=== PATIENT | female | born 1950 | race Caucasian/White ===

== ENCOUNTER 2016-11-14 17:05 | Emergency (ER) | payer MEDICARE, OTHER ==
--- NOTE | 2016-11-14 17:55 | XRAY Preliminary Report ---
Exam: XR Elbow 3 View LT IMPRESSION: No fracture or joint effusion. [facility] SITE ID: [id number]
--- NOTE | 2016-11-14 17:57 | XRAY Report ---
EXAM: LEFT ELBOW RADIOGRAPHY EXAM DATE: 11/14/2016 05:32 PM. CLINICAL HISTORY: Fall. Injury. Elbow pain. COMPARISON: None. TECHNIQUE: No traumatic or destructive bone abnormalities. views. FINDINGS: Bones: No traumatic or destructive bone abnormality. Lateral epicondylar enthesophyte noted. Joints: Normal. No effusion. No subluxation. Soft Tissues: Subcutaneous fat stranding noted laterally. IMPRESSION: No fracture or joint effusion. [facility] Referring Provider Line: [phone] SITE ID: [id number]
--- NOTE | 2016-11-14 18:27 | ED Physician Documentation ---
PD HPI UPPER EXT INJURY - Stated complaint Stated Complaint: FALL LT ARM INJ - Chief complaint Chief Complaint: Ext Problem - History obtained from History obtained from: Patient - History of Present Illness Location: Left, Elbow, Forearm Type of injury: Fall (slipped and caught her fall with left arm. Denies other injury.) Timing - onset: Today Timing - details: Abrupt onset, Still present Improved by: Rest Worsened by: Moving, Palpating Associated symptoms: No: Weakness, Numbness, Swelling Contributing factors: No: Anticoagulated Similar symptoms before: Has not had sx before Recently seen: Not recently seen Review of Systems Constitutional: denies: Fever, Chills Nose: denies: Rhinorrhea / runny nose, Congestion Throat: denies: Sore throat Cardiac: denies: Chest pain / pressure Respiratory: denies: Cough GI: denies: Abdominal Pain Skin: denies: Abrasion (s), Laceration (s) Neurologic: denies: Focal weakness, Numbness, Altered mental status, Headache, Head injury PD PAST MEDICAL HISTORY - Past Medical History Past Medical History: Yes Cardiovascular: Hypertension Neuro: TIA Endocrine/Autoimmune: Type 2 diabetes - Past Surgical History General: Cholecystectomy, Gastric surgery - Present Medications Home Medications: Ambulatory Orders Medication Instructions Recorded Confirmed Aspirin Chewable [St Joey 81 mg PO DAILY 11/14/16 11/14/16 Aspirin] Lisinopril 10 mg PO DAILY 11/14/16 11/14/16 Metformin HCl 500 mg PO BID 11/14/16 11/14/16 Simvastatin 20 mg PO DAILY 11/14/16 11/14/16 Tramadol HCl 50 mg PO Q6H PRN #20 tablet 11/14/16 - Allergies Allergies/Adverse Reactions: Allergies Allergy/AdvReac Type Severity Reaction Status Date / Time Sulfa (Sulfonamide Allergy Unknown Verified 11/14/16 17:24 Antibiotics) - Social History Does the pt smoke?: No Smoking Status: Never smoker PD ED PE NORMAL - Vitals Vital signs reviewed: Yes - General General: Alert and oriented X 3, Well developed/nourished - HEENT HEENT: Atraumatic - Neck Neck: Supple, no meningeal sign, No bony TTP, No adenopathy - Respiratory Respiratory: Clear bilaterally, Other (no chestwall tenderness) - Abdomen Abdomen: Soft, Non tender - Derm Derm: Normal color, Warm and dry - Extremities Extremities: Other (left elbow tender radial head area. No effusion. ROM present but hurts for full extension. also some tender dorsal wrist without swelling nor deformity. ELbow and forearm pain with supination/pronation of forearm. ) - Neuro Neuro: No motor deficit, No sensory deficit Results - Vitals Vitals: Oxygen O2 Source Room air - Rads (name of study) elbow Radiology: Prelim report reviewed (no fracture) wrist Radiology: Prelim report reviewed (no fracture) PD MEDICAL DECISION MAKING - ED course Complexity details: reviewed results, considered differential (tender in radial head area with hurts with ROM elbow and supination/pronation at wrist. No effusion of elbow. Concern for occult radial neck injury. Guarded use and ROM for short term. ), d/w patient Departure - Departure Disposition: 01 Home, Self Care Clinical Impression: Sprain of arm Fall from slip, trip, or stumble Qualifiers: Encounter type: initial encounter Qualified Code(s): W01.0XXA - Fall on same level from slipping, tripping and stumbling without subsequent striking against object, initial encounter Condition: Stable Record reviewed to determine appropriate education?: Yes Instructions: ED Sprain Elbow Follow-Up: Lana Paez ARNP [Primary Care Provider] - Prescriptions: Tramadol HCl 50 mg PO Q6H PRN #20 tablet PRN Reason: Pain Comments: Your x-rays appear normal here. There is concern however that a few percent of the time there can be a hairline fracture at the head of the radius at the elbow that does not show up on regular x-rays. Since you have pain in the area , would have you use a sling with gentle range of motion only for the next several days to week. This would be proper treatment for a fracture there as well as a sprain. Tylenol 4 times a day and add tramadol if needed for pain. If your wrist and elbow are feeling better over the next several days then he can increase use of them as appropriate and tolerated as the fracture would not get better that quickly. If it is still hurting for movement over a week or so , then recheck with your primary care for potential re-x-ray. Discharge Date/Time: 11/14/16 19:32
[2016-11-14] MEDS ORDERED: traMADol 50 MG TABLET PO STA (18:35)
[2016-11-14] MEDS ORDERED: ACETAMINOPHEN 325 MG TABLET PO STA (18:35)
[2016-11-14] MEDS ORDERED: traMADol 50 MG TABLET PO ONE (18:45)
[2016-11-14] MEDS ORDERED: ACETAMINOPHEN 325 MG TABLET PO ONE (18:46)
[2016-11-14 19:34] VITALS: BP 158/83
--- NOTE | 2016-11-14 19:44 | XRAY Preliminary Report ---
Exam: XR Wrist 4 View LT IMPRESSION: Normal wrist radiography. [facility] SITE ID: [id number]
--- NOTE | 2016-11-14 19:47 | XRAY Report ---
EXAM: LEFT WRIST RADIOGRAPHY EXAM DATE: 11/14/2016 06:55 PM. CLINICAL HISTORY: Fell onto left arm/wrist. Pain. COMPARISON: None. TECHNIQUE: 4 views. FINDINGS: Bones: Normal. No fractures or bone lesions. Joints: Normal. No subluxations. Soft Tissues: Normal. No soft tissue swelling. IMPRESSION: Normal wrist radiography. [facility] Referring Provider Line: [phone] SITE ID: [id number]
== END 2016-11-14 19:32 | disposition home or self-care (01) ==
LOC: ED 17:05
DX: S53.402A Unspecified sprain of left elbow, initial encounter (principal); S63.502A Unspecified sprain of left wrist, initial encounter; W01.0XXA Fall on same level from slipping, tripping and stumbling without subsequent striking against object, initial encounter; I10 Essential (primary) hypertension; E11.9 Type 2 diabetes mellitus without complications; Z79.84 Long term (current) use of oral hypoglycemic drugs; Z86.73 Personal history of transient ischemic attack (TIA), and cerebral infarction without residual deficits
CPT/HCPCS: 73080; 73110; 99282; 99283; A9270

== ENCOUNTER 2016-11-29 15:26 | Outpatient (CLI) | payer MEDICARE, OTHER ==
[2016-11-29 13:17] LABS: BASOPHILS % (AUTO) 0.3 %; EOSINOPHILS # (AUTO) 0.2 10^3/uL (0.0-0.7); EOSINOPHILS % (AUTO) 2.5 %; HCT - HEMATOCRIT 35.5 % (37.0-47.0); HGB - HEMOGLOBIN 11.7 g/dL (12.0-16.0); LYMPHOCYTES # (AUTO) 2.7 10^3/uL (1.5-3.5); LYMPHOCYTES % (AUTO) 36.3 %; MEAN CORPUSCULAR HEMOGLOBIN 28.1 pg (27.0-31.0); MEAN CORPUSCULAR HGB CONC 33.1 g/dL (32.0-36.0); MEAN CORPUSCULAR VOLUME 85.1 fL (81.0-99.0); MEAN PLATELET VOLUME 8.5 fL (7.9-10.8); MONOCYTES # (AUTO) 0.6 10^3/uL (0.0-1.0); MONOCYTES % (AUTO) 8.2 %; NEUTROPHILS # (AUTO) 3.9 10^3/uL (1.5-6.6); NEUTROPHILS % (AUTO) 52.7 %; RED BLOOD COUNT 4.17 10^6/uL (4.20-5.40); RED CELL DISTRIBUTION WIDTH 14.2 % (12.0-15.0); UNCORRECTED WHITE BLOOD COUNT 7.3 x10^3/uL; WHITE BLOOD COUNT 7.3 x10^3/uL (4.8-10.8)
[2016-11-29 13:40] LABS: ALBUMIN/GLOBULIN RATIO 1.2 (1.0-2.2); BILIRUBIN,TOTAL 0.9 mg/dL (0.2-1.0); BUN - BLOOD UREA NITROGEN 17 mg/dL (6-20); CALCIUM 9.2 mg/dL (8.5-10.3); CARBON DIOXIDE - CO2 25 mmol/L (21-32); CHLORIDE 104 mmol/L (101-111); CHOL/HDL RATIO 2.4 (<4.4); CHOLESTEROL 148 mg/dL; CREATININE 0.7 mg/dL (0.4-1.0); GFR - MDRD 84 (>89); GLUCOSE 116 mg/dL (70-100); HDL CHOLESTEROL 62 mg/dL; POTASSIUM 3.8 mmol/L (3.5-5.0); SODIUM 139 mmol/L (135-145); TOTAL PROTEIN 7.4 g/dL (6.7-8.2); TRIGLYCERIDES 107 mg/dL; VLDL CHOLESTEROL 21 mg/dL
== END 2016-11-29 15:27 | disposition home or self-care (01) ==
LOC: LAB.N 15:26
PROVIDERS: ATTEND Nurse Practitioner Gerontology
DX: Z79.899 Other long term (current) drug therapy (principal); E53.8 Deficiency of other specified B group vitamins
CPT/HCPCS: 36415; 80053; 80061; 82607; 85025

== ENCOUNTER 2017-01-03 09:45 | Outpatient (CLI) | payer MEDICARE, OTHER ==
--- NOTE | 2017-01-04 08:39 | DEXA Report ---
DEXA: 01/03/2017 CLINICAL INDICATION: Postmenopausal. TECHNIQUE: Dual energy x-ray absorptiometry (DXA) was performed on a [employer] system. Regions measured are the AP spine, femoral neck, and, if needed, forearm. COMPARISON: None. In accordance with the International Society for Clinical Densitometry (ISCD) guidelines, data from previous exams may be reanalyzed using current recommendations and techniques. This is done to allow a more accurate basis for comparison with the current study. FINDINGS LUMBAR SPINE DATA: REGION BMD (g/cm/cm) T-SCORE Z-SCORE L1 0.854 -2.3 -1.3 L2 1.107 -0.8 0.2 L3 1.175 -0.2 0.8 L4 0.977 -1.9 -0.9 TOTAL L1-L4 1.030 -1.3 -0.3 NOTE: All evaluable vertebrae are used for classification. HIP DATA: REGION BMD (g/cm/cm) T-SCORE Z-SCORE Neck 0.829 -1.5 -0.4 TOTAL 0.814 -1.5 -0.7 NOTE: The femoral neck or total proximal femur, whichever is lowest, is used for classification. IMPRESSION THE WHO CLASSIFICATION BASED ON THE INTERNATIONAL REFERENCE STANDARD: OSTEOPENIA. FRACTURE RISK: INCREASED. RECOMMENDATION: Patients with diagnosis of osteoporosis or osteopenia should have regular bone mineral density assessment. For those eligible for Medicare, routine testing is allowed once every 2 years. Testing frequency can be increased for patients who have rapidly progressing disease or for those who are receiving medical therapy to restore bone mass. COMMENT: World Health Organization (WHO) definitions for osteoporosis and osteopenia: NORMAL BMD: T-score at -1.0 or higher, fracture risk is low. OSTEOPENIA BMD: T-score between -1.0 and -2.5, fracture risk is increased. OSTEOPOROSIS BMD: T-score at -2.5 or lower, fracture risk high. National Osteoporosis Foundation recommends: 1. Obtain adequate dietary calcium (at least 1200 mg per day) and vitamin D (400 -800 international units per day). 2. Participate, as appropriate, in regular weightbearing and muscle- strengthening exercise. 3. Avoid tobacco use and reduce alcohol and caffeine intake. 4. For more detailed information see the website at www.NOF.org. MTDD
== END 2017-01-03 09:46 | disposition home or self-care (01) ==
LOC: DI 09:45
PROVIDERS: ATTEND Nurse Practitioner Gerontology
DX: M85.89 Other specified disorders of bone density and structure, multiple sites (principal)
CPT/HCPCS: 77080

== ENCOUNTER 2017-01-14 06:20 | Emergency (ER) | payer MEDICARE, OTHER ==
[2017-01-14 06:40] LABS: BASOPHILS # (AUTO) 0.1 10^3/uL (0.0-0.1); BASOPHILS % (AUTO) 1.3 %; EOSINOPHILS # (AUTO) 0.2 10^3/uL (0.0-0.7); EOSINOPHILS % (AUTO) 1.7 %; HCT - HEMATOCRIT 37.2 % (37.0-47.0); HGB - HEMOGLOBIN 12.5 g/dL (12.0-16.0); LYMPHOCYTES # (AUTO) 3.2 10^3/uL (1.5-3.5); LYMPHOCYTES % (AUTO) 34.3 %; MEAN CORPUSCULAR HGB CONC 33.6 g/dL (32.0-36.0); MEAN CORPUSCULAR VOLUME 86.3 fL (81.0-99.0); MEAN PLATELET VOLUME 8.1 fL (7.9-10.8); MONOCYTES # (AUTO) 0.9 10^3/uL (0.0-1.0); MONOCYTES % (AUTO) 9.7 %; RED BLOOD COUNT 4.31 10^6/uL (4.20-5.40); RED CELL DISTRIBUTION WIDTH 14.4 % (12.0-15.0); UNCORRECTED WHITE BLOOD COUNT 9.5 x10^3/uL; WHITE BLOOD COUNT 9.5 x10^3/uL (4.8-10.8)
[2017-01-14 06:52] LABS: BILIRUBIN,URINE NEGATIVE (NEGATIVE); PH,URINE 6.5 PH (5.0-7.5)
[2017-01-14 06:53] LABS: ALBUMIN/GLOBULIN RATIO 1.2 (1.0-2.2); BILIRUBIN,TOTAL 0.5 mg/dL (0.2-1.0); CALCIUM 9.7 mg/dL (8.5-10.3); CREATININE 0.8 mg/dL (0.4-1.0); POTASSIUM 3.5 mmol/L (3.5-5.0); TOTAL PROTEIN 7.8 g/dL (6.7-8.2)
[2017-01-14 07:06] LABS: UA w/ MICROSCOPIC CHARGE YES; UR CULTURE IF IND NOT INDICATED; WBC,URINE 0-3 /HPF (0-5)
[2017-01-14] MEDS ORDERED: MORPHINE 2 MG/ML SYRINGE IVP STA (07:29)
[2017-01-14] MEDS ORDERED: ONDANSETRON 4 MG/2 ML VIAL IVP STA (07:30)
[2017-01-14] MEDS ORDERED: MORPHINE 2 MG/ML SYRINGE ONE (07:45)
[2017-01-14] MEDS ORDERED: ONDANSETRON 4 MG/2 ML VIAL ONE (07:45)
--- NOTE | 2017-01-14 07:55 | ED Physician Documentation ---
PD HPI ABD PAIN - Stated complaint Stated Complaint: BACK/SIDE PX - Chief complaint Chief Complaint: Back Pain - History obtained from History obtained from: Patient - History of Present Illness Timing - onset: Last night Timing - duration: Hours Timing - details: Abrupt onset Severity Comments: intermittently severe with dull pain between Quality: Stabbing Location: Other (right flank, suprapubic) Associated symptoms: Other (urinary frequency) - Additional information Additional information: Urinary frequency beginning around 12am without dysuria. Began to have severe right flank pain after "worse than labor". pain decreased then increased again in the ED. No vomiting, no fevers. recent constipation. Review of Systems Constitutional: denies: Fever GI: reports: Other (see hpi) PD PAST MEDICAL HISTORY - Past Medical History Past Medical History: Yes Cardiovascular: Hypertension Neuro: TIA Endocrine/Autoimmune: Type 2 diabetes Other Past Medical History: UTI - Past Surgical History Past Surgical History: Yes General: Cholecystectomy, Gastric surgery - Present Medications Home Medications: Ambulatory Orders Medication Instructions Recorded Confirmed Aspirin Chewable [St Joey 81 mg PO DAILY 11/14/16 12/19/16 Aspirin] Lisinopril 10 mg PO DAILY 11/14/16 12/19/16 Metformin HCl 500 mg PO BID 11/14/16 12/19/16 Simvastatin 20 mg PO DAILY 11/14/16 12/19/16 - Allergies Allergies/Adverse Reactions: Allergies Allergy/AdvReac Type Severity Reaction Status Date / Time Sulfa (Sulfonamide Allergy Unknown Verified 01/14/17 06:33 Antibiotics) - Social History Does the pt smoke?: No Smoking Status: Never smoker Does the pt drink ETOH?: No Does the pt have substance abuse?: No - Immunizations Immunizations are current?: Yes - POLST Patient has POLST: No Results - Vitals Vitals: Vital Signs - 24 hr 01/14/17 01/14/17 06:26 07:56 Temperature 36.5 C 36.6 C Heart Rate 75 59 L Respiratory 19 15 Rate Blood Pressure 183/87 H 126/71 O2 Saturation 100 97 Oxygen O2 Source Room air - Labs Labs: Laboratory Tests 01/14/17 01/14/17 01/14/17 06:30 06:32 06:32 WBC 9.5 RBC 4.31 Hgb 12.5 Hct 37.2 MCV 86.3 MCH 29.0 MCHC 33.6 RDW 14.4 Plt Count 287 MPV 8.1 Neut # 5.0 Lymph # 3.2 [place]ade # 0.9 Eos # 0.2 Baso # 0.1 Absolute Nucleated RBC 0.00 Nucleated RBC % 0.0 Sodium 140 Potassium 3.5 Chloride 101 Carbon Dioxide 24 Anion Gap 15.0 H BUN 18 Creatinine 0.8 Estimated GFR (MDRD) 72 L Glucose 162 H Calcium 9.7 Total Bilirubin 0.5 AST 24 ALT 21 Alkaline Phosphatase 88 Total Protein 7.8 Albumin 4.2 Globulin 3.6 Albumin/Globulin Ratio 1.2 Lipase 45 Urine Color YELLOW Urine Clarity CLEAR Urine pH 6.5 Ur Specific [place] <=1.005 Urine Protein NEGATIVE Urine Glucose (UA) NEGATIVE Urine Ketones NEGATIVE Urine Occult Blood SMALL H Urine Nitrite NEGATIVE Urine Bilirubin NEGATIVE Urine Urobilinogen 0.2 (NORMAL) Ur Leukocyte Esterase NEGATIVE Urine RBC 0-5 Urine WBC 0-3 Ur Squamous Epith Cells RARE Squamous Urine Bacteria Rare Ur Microscopic Review INDICATED Urine Culture Comments NOT INDICATED PD MEDICAL DECISION MAKING - ED course Complexity details: reviewed results, re-evaluated patient, considered differential, d/w patient ED course: 66-year-old female with flank pain, CT with punctate stone with mild to moderate hydro-ureteronephrosis. Patient has no infectious symptoms is tolerating p.o. Symptoms improved in the emergency department, she will use her regular home tramadol and if pain is uncontrolled given prescription for small amount of [place] as well as Zofran. Return precuations reviewed.
--- NOTE | 2017-01-14 08:03 | CT Preliminary Report ---
Exam: CT ABDOMEN/PELVIS W/O IMPRESSION: 1. There is mild to moderate right-sided hydroureteronephrosis due to an obstructing punctate stone w ithin the mid pelvis, just distal to the iliac crossing. 2. There is a punctate right mid kidney stone. No left-sided kidney stone. 3. 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 4. Large amount of retained colon fecal material suggesting chronic constipation. There is severe sig moid diverticulosis without diverticulitis. 5. Prior Geni-en-Y gastric bypass surgery. Prior cholecystectomy. [facility] SITE ID: [id number]
--- NOTE | 2017-01-14 08:06 | CT Report ---
EXAM: CT ABDOMEN AND PELVIS EXAM DATE: 01/14/2017 07:49 AM. CLINICAL HISTORY: Right-sided flank pain COMPARISONS: None. TECHNIQUE: Routine helical CT imaging was performed through the abdomen and pelvis. IV contrast: None . Enteric contrast: No. Reconstructions: Coronal and sagittal. In accordance with CT protocol optimization, one or more of the following dose reduction techniques w ere utilized for this exam: automated exposure control, adjustment of mA and/or KV based on patient s ize, or use of iterative reconstructive technique. FINDINGS: Right Kidney/Ureter: There is pxmw-jd-shekproi right-sided hydroureteronephrosis. The obstructing abn ormality is located in the right distal ureter, abdomen and pelvis location (image 71 series 3). Ther e is a 2 mm stone at that location. There is a punctate right mid kidney stone posteriorly. No defini te renal mass within the confines of a non-contrast exam. Left Kidney/Ureter: Left upper renal angiomyolipoma measuring one-point centimeters is noted (image 2 8 series 5). No left-sided kidney stone or hydronephrosis. Abdominal Solid Organs: Abdominal parenchymal organs are without significant abnormality within the c onfines of a noncontrast exam. Gallbladder is surgically absent. Bowel: There is a large amount of retained colon fecal material. No evidence of bowel obstruction is noted. Appendix could not be identified with certainty. There are areas of scattered small bowel fece s sign, indicating chronic slow small bowel motility. Prior Geni-en-Y gastric bypass surgery has been performed. Lymph Nodes: No definite pathologic lymphadenopathy. Fluid: No significant ascites. Vasculature: Normal caliber aorta. Moderate aortic and branch vessel atherosclerosis. Pelvis: No bladder stones. Visualized pelvic organs are without significant abnormality within the co nfines of a noncontrast exam. Bones: No definite suspicious bony lesions demonstrated. There is moderate multilevel degenerative ch dana within the spine. Lower Chest: No significant lung base consolidation or effusion. Bilateral breast prosthesis. IMPRESSION: 1. There is mild to moderate right-sided hydroureteronephrosis due to an obstructing punctate stone w ithin the mid pelvis, just distal to the iliac crossing. 2. There is a punctate right mid kidney stone. No left-sided kidney stone. 3. 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 4. Large amount of retained colon fecal material suggesting chronic constipation. There is severe sig moid diverticulosis without diverticulitis. 5. Prior Geni-en-Y gastric bypass surgery. Prior cholecystectomy. [facility] Referring Provider Line: [phone] SITE ID: [id number]
--- NOTE | 2017-01-14 08:49 | ED Physician Documentation ---
Departure - Departure Disposition: 01 Home, Self Care Clinical Impression: Renal colic, Ureterolithiasis Condition: Good Instructions: ED Stone Renal W Colic Follow-Up: Lana Paze ARNP [Primary Care Provider] - Within 1 week Prescriptions: HYDROcod/ACETAM 5/325 [[place] 5/325] 1 - 2 ea PO Q6H PRN #11 tablet PRN Reason: Pain Ondansetron Odt [Zofran] 4 mg TL Q6H PRN #10 tablet PRN Reason: Nausea / Vomiting Comments: Follow-up with your primary care doctor. Return to the emergency department if you are unable to eat or drink, fevers or severe pain. Do not drink alcohol or drive while on narcotic pain medicine. Note that many narcotic pain relievers also contain tylenol/acetaminophen. Please ensure that your total dose of acetaminophen from all sources does not exceed 3 grams (3000mg) per day. You may constipated on this medication, take a stool softener such as "Colace" twice a day while you are on it. Also recommend a mcro-srm-dvxmalq laxative such as senna or MiraLAX any day that you do not have a bowel movement. If you received narcotic pain medication in the emergency department, do not drive or operate machinery for the next 24 hours.
[2017-01-14 09:23] VITALS: BP 120/70
== END 2017-01-14 09:23 | disposition home or self-care (01) ==
LOC: ED 06:20
DX: N13.2 Hydronephrosis with renal and ureteral calculous obstruction (principal); I10 Essential (primary) hypertension; E11.9 Type 2 diabetes mellitus without complications; Z79.84 Long term (current) use of oral hypoglycemic drugs; Z87.440 Personal history of urinary (tract) infections; Z86.73 Personal history of transient ischemic attack (TIA), and cerebral infarction without residual deficits; Z98.84 Bariatric surgery status; Z79.82 Long term (current) use of aspirin
CPT/HCPCS: 36415; 74176; 80053; 81001; 83690; 85025; 96374; 96375; 99284; J2270; 81003; 87086

== ENCOUNTER 2017-07-27 08:00 | Outpatient (CLI) | payer MEDICARE, OTHER ==
[2017-07-27 19:10] LABS: BASOPHILS % (AUTO) 0.5 %; EOSINOPHILS # (AUTO) 0.1 10^3/uL (0.0-0.7); EOSINOPHILS % (AUTO) 1.5 %; LYMPHOCYTES # (AUTO) 1.8 10^3/uL (1.5-3.5); LYMPHOCYTES % (AUTO) 27.4 %; MEAN CORPUSCULAR HEMOGLOBIN 27.6 pg (27.0-31.0); MEAN CORPUSCULAR HGB CONC 31.9 g/dL (32.0-36.0); MEAN CORPUSCULAR VOLUME 86.6 fL (81.0-99.0); MEAN PLATELET VOLUME 8.6 fL (7.9-10.8); MONOCYTES # (AUTO) 0.5 10^3/uL (0.0-1.0); MONOCYTES % (AUTO) 7.3 %; NEUTROPHILS # (AUTO) 4.1 10^3/uL (1.5-6.6); NEUTROPHILS % (AUTO) 63.3 %; PLT - PLATELET COUNT 291 10^3/uL (130-450); RED BLOOD COUNT 4.34 10^6/uL (4.20-5.40); RED CELL DISTRIBUTION WIDTH 15.2 % (12.0-15.0); WHITE BLOOD COUNT 6.5 x10^3/uL (4.8-10.8)
[2017-07-27 19:27] LABS: HB2 TOTAL 12.3 g/dL; HEMOGLOBIN A1C 0.68 g/dL; HEMOGLOBIN A1C % 7.2 % (4.6-6.2)
[2017-07-27 19:37] LABS: THYROID STIMULATING HORMONE 2.73 uIU/mL (0.34-5.60)
[2017-07-27 19:39] LABS: ALBUMIN 3.8 g/dL (3.2-5.5); ALBUMIN/GLOBULIN RATIO 1.1 (1.0-2.2); ALKALINE PHOSPHATASE 77 IU/L (42-121); ALT ALANINE AMINOTRANSFERASE 18 IU/L (10-60); AST ASPARTATE AMINOTRANSFERASE 20 IU/L (10-42); BILIRUBIN,TOTAL 0.6 mg/dL (0.2-1.0); BUN - BLOOD UREA NITROGEN 15 mg/dL (6-20); CARBON DIOXIDE - CO2 26 mmol/L (21-32); CHLORIDE 104 mmol/L (101-111); CHOL/HDL RATIO 2.1 (<4.4); CHOLESTEROL 146 mg/dL; CREATININE 0.8 mg/dL (0.4-1.0); GFR - MDRD 72 (>89); GLUCOSE 136 mg/dL (70-100); HDL CHOLESTEROL 69 mg/dL; LDL CHOLESTEROL,CALCULATED 59 mg/dL; LDL/HDL RATIO 0.9 (<4.4); SODIUM 138 mmol/L (135-145); TOTAL PROTEIN 7.4 g/dL (6.7-8.2); VLDL CHOLESTEROL 18 mg/dL
[2017-07-27 20:38] LABS: FOLATE > 49.60 ng/mL (5.90 - >24.8)
== END 2017-07-27 23:59 | disposition home or self-care (01) ==
LOC: LAB.N 08:00
PROVIDERS: ATTEND Nurse Practitioner Gerontology
DX: I10 Essential (primary) hypertension (principal); E11.9 Type 2 diabetes mellitus without complications; Z79.899 Other long term (current) drug therapy; R89.9 Unspecified abnormal finding in specimens from other organs, systems and tissues; Z98.84 Bariatric surgery status; E53.8 Deficiency of other specified B group vitamins
CPT/HCPCS: 36415; 80053; 80061; 82607; 82746; 83036; 83721; 84443; 85025

== ENCOUNTER 2017-12-12 10:32 | Outpatient (CLI) | payer MEDICARE, OTHER ==
[2017-12-12 13:52] LABS: HB2 TOTAL 12.6 g/dL; HEMOGLOBIN A1C 0.74 g/dL; HEMOGLOBIN A1C % 7.5 % (4.6-6.2)
== END 2017-12-12 10:33 | disposition home or self-care (01) ==
LOC: LAB.N 10:32
PROVIDERS: ATTEND Nurse Practitioner Gerontology
DX: E11.9 Type 2 diabetes mellitus without complications (principal)
CPT/HCPCS: 36415; 83036

== ENCOUNTER 2018-04-21 14:31 | Outpatient (CLI) | payer MEDICARE, OTHER ==
--- NOTE | 2018-04-21 18:35 | XRAY Report ---
Reason: HIP PAIN Procedure Date: 04/21/2018 Accession Number: [id number] / [id number] Procedure: XR - Hip w/Pelvis 2-3V RT CPT Code: FULL RESULT: EXAM: RIGHT HIP RADIOGRAPHY EXAM DATE: 04/21/2018 03:04 PM. CLINICAL HISTORY: Hip pain. COMPARISON: None. TECHNIQUE: 2 views. FINDINGS: Bones: The bones are qualitatively osteopenic; this limits evaluation for underlying fractures or masses. No fracture detected. Joints: Moderate bilateral femoral acetabular joint space narrowing. Sacroiliac joints are congruent. Soft Tissues: Normal. No soft tissue swelling. IMPRESSION: Moderate degenerative changes. [facility]
== END 2018-04-21 14:32 | disposition home or self-care (01) ==
LOC: DI 14:31
PROVIDERS: ATTEND Family Medicine
DX: M16.11 Unilateral primary osteoarthritis, right hip (principal)

== ENCOUNTER 2018-05-08 10:02 | Outpatient (CLI) | payer MEDICARE, OTHER ==
--- NOTE | 2018-05-08 10:57 | XRAY Report ---
Reason: CHRONIC BACK PAIN Procedure Date: 05/08/2018 Accession Number: [id number] / [id number] Procedure: XRN - Lumbar Spine 2 View CPT Code: FULL RESULT: EXAM: LUMBOSACRAL SPINE RADIOGRAPHY EXAM DATE: 05/08/2018 10:31 AM. CLINICAL HISTORY: Chronic back pain. COMPARISONS: THORACIC SPINE 3 VIEW 05/08/2018 10:26 AM. TECHNIQUE: 3 views. FINDINGS: Alignment: Mild levoconvex thoracolumbar scoliosis centered about L2. No significant listhesis. Subjectively, mild hyperlordosis. Bones: Five hfn-enx-ezyhmho lumbar vertebral bodies are present. No fractures or bone lesions. Disks: Mild endplate spurring at multiple levels with generally preserved disk space height. Facets: Mild to moderate facet degenerative changes most pronounced at L5. Sacroiliac Joints: Unremarkable. Soft Tissues: Calcified abdominal aorta and surgical clips suggestive of prior cholecystectomy. IMPRESSION: Mild degenerative changes including scoliosis. [facility]
--- NOTE | 2018-05-09 06:17 | XRAY Report ---
Reason: back pain chronic Procedure Date: 05/08/2018 Accession Number: [id number] / [id number] Procedure: XRN - Thoracic Spine 3 View CPT Code: FULL RESULT: EXAM: THORACIC SPINE RADIOGRAPHY EXAM DATE: 05/08/2018 10:31 AM. CLINICAL HISTORY: Back pain, chronic. COMPARISON: HIP W/PELVIS 2-3V RT 04/21/2018 3:04 PM. TECHNIQUE: 3 views. FINDINGS: Alignment: There is a subtle S-shaped thoracic scoliosis in the form of a mild levoconvex scoliosis centered about T3 followed by a dextroconvex scoliosis centered about T8. There is a thoracic kyphosis without a dominant single-level wedge fracture identified. Bones: There is flowing lateral osteophytosis on the right side of the lower thoracic spine. Disks: Normal. Disk heights are maintained. Soft Tissues: Normal. The visualized lungs and cardiomediastinal silhouette are normal. IMPRESSION: Degenerative changes as described. [facility]
== END 2018-05-08 10:03 | disposition home or self-care (01) ==
LOC: DI.N 10:02
PROVIDERS: ATTEND Nurse Practitioner Gerontology
DX: M41.85 Other forms of scoliosis, thoracolumbar region (principal); M25.78 Osteophyte, vertebrae
CPT/HCPCS: 72072; 72100

== ENCOUNTER 2018-06-04 08:00 | Outpatient (CLI) | payer MEDICARE, OTHER ==
[2018-06-04 18:49] LABS: BASOPHILS % (AUTO) 0.6 %; EOSINOPHILS # (AUTO) 0.1 10^3/uL (0.0-0.7); EOSINOPHILS % (AUTO) 1.7 %; HGB - HEMOGLOBIN 12.6 g/dL (12.0-16.0); LYMPHOCYTES # (AUTO) 1.7 10^3/uL (1.5-3.5); LYMPHOCYTES % (AUTO) 27.6 %; MEAN CORPUSCULAR HEMOGLOBIN 29.1 pg (27.0-31.0); MEAN CORPUSCULAR HGB CONC 32.5 g/dL (32.0-36.0); MEAN CORPUSCULAR VOLUME 89.7 fL (81.0-99.0); MEAN PLATELET VOLUME 8.8 fL (7.9-10.8); MONOCYTES # (AUTO) 0.4 10^3/uL (0.0-1.0); MONOCYTES % (AUTO) 6.5 %; NEUTROPHILS % (AUTO) 63.6 %; PLT - PLATELET COUNT 286 10^3/uL (130-450); RED BLOOD COUNT 4.31 10^6/uL (4.20-5.40); RED CELL DISTRIBUTION WIDTH 14.3 % (12.0-15.0); WHITE BLOOD COUNT 6.3 x10^3/uL (4.8-10.8)
[2018-06-04 19:02] LABS: ALBUMIN/GLOBULIN RATIO 1.2 (1.0-2.2); ALKALINE PHOSPHATASE 61 IU/L (42-121); ALT ALANINE AMINOTRANSFERASE 25 IU/L (10-60); AST ASPARTATE AMINOTRANSFERASE 23 IU/L (10-42); BILIRUBIN,TOTAL 0.6 mg/dL (0.2-1.0); BUN - BLOOD UREA NITROGEN 19 mg/dL (6-20); CALCIUM 9.1 mg/dL (8.5-10.3); CARBON DIOXIDE - CO2 27 mmol/L (21-32); CHLORIDE 103 mmol/L (101-111); CHOL/HDL RATIO 2.4 (<4.4); CHOLESTEROL 154 mg/dL; CREATININE 0.8 mg/dL (0.4-1.0); GFR - MDRD 71 (>89); GLUCOSE 132 mg/dL (70-100); HDL CHOLESTEROL 64 mg/dL; LDL CHOLESTEROL,CALCULATED 70 mg/dL; LDL/HDL RATIO 1.1 (<4.4); SODIUM 138 mmol/L (135-145); TOTAL PROTEIN 7.3 g/dL (6.7-8.2); VLDL CHOLESTEROL 20 mg/dL
[2018-06-04 19:15] LABS: HB2 TOTAL 13.8 g/dL; HEMOGLOBIN A1C 0.7 g/dL; HEMOGLOBIN A1C % 6.8 % (4.6-6.2)
== END 2018-06-04 23:59 | disposition home or self-care (01) ==
LOC: LAB.N 08:00
PROVIDERS: ATTEND Family Medicine
DX: E78.5 Hyperlipidemia, unspecified (principal); E11.9 Type 2 diabetes mellitus without complications; I10 Essential (primary) hypertension; Z79.899 Other long term (current) drug therapy
CPT/HCPCS: 36415; 80053; 80061; 83036; 83721; 84443; 85025

== ENCOUNTER 2018-10-22 08:00 | Outpatient (CLI) | payer MEDICARE, OTHER ==
[2018-10-22 17:51] LABS: BILIRUBIN,URINE NEGATIVE (NEGATIVE); GLUCOSE, URINE (UA) NEGATIVE (NEGATIVE); KETONES,URINE (UA) NEGATIVE (NEGATIVE); LEUKOCYTE ESTERASE, URINE LARGE (NEGATIVE); NITRITE,URINE POSITIVE (NEGATIVE); OCCULT BLOOD,URINE TRACE-LYSE (NEGATIVE); PROTEIN,URINE NEGATIVE (NEGATIVE); UROBILINOGEN,URINE 0.2 (NORMAL) E.U./dL (NORMAL)
[2018-10-22 17:59] LABS: CLARITY,URINE HAZY (CLEAR)
[2018-10-22 18:00] LABS: BACTERIA,URINE Many /HPF (None Seen); RBC,URINE 0-5 /HPF (0-5); SQUAMOUS EPITHELIAL CELL,UR NONE SEEN (<= Few)
== END 2018-10-22 23:59 ==
LOC: LAB.R 08:00
PROVIDERS: ATTEND Obstetrics & Gynecology
DX: N39.0 Urinary tract infection, site not specified (principal)
CPT/HCPCS: 81001; 81003; 87086; 87181

== ENCOUNTER 2018-12-20 09:38 | Outpatient (CLI) | payer MEDICARE, OTHER ==
[2018-12-20 13:22] LABS: HB2 TOTAL 12.4 g/dL; HEMOGLOBIN A1C 0.58 g/dL; HEMOGLOBIN A1C % 6.4 % (4.6-6.2)
== END 2018-12-20 23:59 | disposition home or self-care (01) ==
LOC: LAB.N 09:38
PROVIDERS: ATTEND Nurse Practitioner Gerontology
DX: E11.9 Type 2 diabetes mellitus without complications (principal)
CPT/HCPCS: 36415; 83036

== ENCOUNTER 2019-03-07 11:39 | Outpatient (CLI) | payer MEDICARE, OTHER ==
[2019-03-07 11:57] LABS: BASOPHILS # (AUTO) 0.1 10^3/uL (0.0-0.1); BASOPHILS % (AUTO) 0.5 %; EOSINOPHILS # (AUTO) 0.1 10^3/uL (0.0-0.7); EOSINOPHILS % (AUTO) 1.1 %; HGB - HEMOGLOBIN 12.4 g/dL (12.0-16.0); LYMPHOCYTES # (AUTO) 2.6 10^3/uL (1.5-3.5); LYMPHOCYTES % (AUTO) 26.9 %; MEAN CORPUSCULAR HEMOGLOBIN 29.7 pg (27.0-31.0); MEAN CORPUSCULAR HGB CONC 31.9 g/dL (32.0-36.0); MEAN CORPUSCULAR VOLUME 93.3 fL (81.0-99.0); MEAN PLATELET VOLUME 9.2 fL (7.9-10.8); MONOCYTES # (AUTO) 0.7 10^3/uL (0.0-1.0); NEUTROPHILS # (AUTO) 6.2 10^3/uL (1.5-6.6); NEUTROPHILS % (AUTO) 64.1 %; PLT - PLATELET COUNT 274 10^3/uL (130-450); RED BLOOD COUNT 4.17 10^6/uL (4.20-5.40); RED CELL DISTRIBUTION WIDTH 13.8 % (12.0-15.0); WHITE BLOOD COUNT 9.6 x10^3/uL (4.8-10.8)
[2019-03-07 12:16] LABS: ALBUMIN 4.2 g/dL (3.2-5.5); ALBUMIN/GLOBULIN RATIO 1.3 (1.0-2.2); BILIRUBIN,TOTAL 0.5 mg/dL (0.2-1.0); CALCIUM 9.4 mg/dL (8.5-10.3); CREATININE 0.8 mg/dL (0.4-1.0); TOTAL PROTEIN 7.4 g/dL (6.7-8.2)
== END 2019-03-07 11:40 | disposition home or self-care (01) ==
LOC: LAB 11:39
PROVIDERS: ATTEND Internal Medicine Gastroenterology
DX: E11.9 Type 2 diabetes mellitus without complications (principal); I10 Essential (primary) hypertension; E78.5 Hyperlipidemia, unspecified
CPT/HCPCS: 36415; 80053; 85025; 93005

== ENCOUNTER 2019-03-21 10:54 | Outpatient (CLI) | payer MEDICARE, OTHER ==
[2019-03-21 18:46] LABS: HB2 TOTAL 11.7 g/dL; HEMOGLOBIN A1C 0.59 g/dL; HEMOGLOBIN A1C % 6.8 % (4.6-6.2)
[2019-03-21 19:55] LABS: FOLATE > 46.00 ng/mL (5.90 - >24.8)
== END 2019-03-21 23:59 | disposition home or self-care (01) ==
LOC: LAB.N 10:54
PROVIDERS: ATTEND Nurse Practitioner Gerontology
DX: E53.8 Deficiency of other specified B group vitamins (principal); E51.9 Thiamine deficiency, unspecified; E11.9 Type 2 diabetes mellitus without complications; Z98.84 Bariatric surgery status; Z79.899 Other long term (current) drug therapy
CPT/HCPCS: 36415; 82306; 82607; 82746; 83036; 84425

== ENCOUNTER 2019-10-18 14:23 | Outpatient (CLI) | payer MEDICARE, OTHER ==
--- NOTE | 2019-10-22 09:42 | Mammography Report ---
BILATERAL DIGITAL SCREENING MAMMOGRAM WITH AUGMENTATION: 10/18/2019 CLINICAL: Routine screening. Comparison is made to exams dated: 12/07/2016 mammogram, 12/07/2016 mammogram, and 09/20/2011 mammogra m - [facility]. There are scattered fibroglandular elements in both breasts. No significant masses, calcifications, or other findings are seen in either breast. There has been no significant interval change. IMPRESSION: NEGATIVE There is no mammographic evidence of malignancy. A 1 year screening mammogram is recommended. This exam was interpreted at Station ID: [id number]. NOTE: For mammograms, a report in lay terms will be sent to the patient. Approximately 15% of breast malignancies will not be visualized mammographically. In the management of a palpable breast mass, a negative mammogram must not discourage biopsy of a clinically suspicious lesion. Electronically Signed By: Sanket Hannon M.D., jr/khadijah:10/18/2019 15:55:45 ACR BI-RADS Category 1: Negative 3341F PARENCHYMAL PATTERN: (A) - The breast(s) demonstrate(s) scattered fibroglandular densities. BI-RADS CATEGORY: (1) - 1 RECOMMENDATION: (ANNUAL) - Recommend routine annual screening mammography. [id number] 1 year screening LATERALITY: (B)
== END 2019-10-18 14:24 | disposition home or self-care (01) ==
LOC: DI 14:23
DX: Z12.31 Encounter for screening mammogram for malignant neoplasm of breast (principal)
CPT/HCPCS: 77067

== ENCOUNTER 2020-03-05 10:03 | Outpatient (CLI) | payer MEDICARE, OTHER ==
[2020-03-05 19:14] LABS: CALCIUM 9.8 mg/dL (8.5-10.3); CREATININE 0.8 mg/dL (0.4-1.0)
[2020-03-05 20:11] LABS: FOLATE > 49.60 ng/mL (5.90 - >24.8)
[2020-03-05 20:56] LABS: HEMOGLOBIN A1c% 6.7 % (4.27-6.07)
== END 2020-03-05 23:59 | disposition home or self-care (01) ==
LOC: LAB.WCP 10:03
PROVIDERS: ATTEND Nurse Practitioner Family
DX: E11.9 Type 2 diabetes mellitus without complications (principal); E55.9 Vitamin D deficiency, unspecified; E53.8 Deficiency of other specified B group vitamins; E51.9 Thiamine deficiency, unspecified; Z98.84 Bariatric surgery status
CPT/HCPCS: 36415; 80048; 82306; 82607; 82652; 82746; 83036; 84425

== ENCOUNTER 2020-05-01 05:03 | Outpatient (CLI) | payer MEDICARE, OTHER | END 2020-05-01 05:04 | disposition critical access hospital (66) | LOC: EMS 05:03 | PROVIDERS: ATTEND Emergency Medicine | DX: R41.82 Altered mental status, unspecified (principal) | CPT/HCPCS: A0425; A0429 ==

== ENCOUNTER 2020-05-01 05:34 | Emergency (ER) | payer MEDICARE, OTHER ==
--- NOTE | 2020-05-01 05:46 | ED Physician Documentation ---
PD HPI ALTERED MENTAL STATUS - Stated complaint Stated Complaint: AMS - Chief complaint Chief Complaint: Neuro - History obtained from History obtained from: Patient, Family (spouse), EMS - History of Present Illness Timing - onset: Enter time (03:30), Today Timing - details: Abrupt onset Quality / character: Memory Loss Associated symptoms: No: Fever, Headache, Stiff neck, Dyspnea, Cough, NVD, Urinary sx, General weakness, Focal weakness, Seizure activity, Syncope Contributing factors: Other (Symptom onset coincided with news of her mothers ). No: Anticoagulated, Diabetic Basline status: Alert and oriented X 3, Ambulatory, Independent Similar symptoms before: Has not had sx before Recently seen: Not recently seen - Additional information Additional information: AZUL JOSÉ. called 911 due to acute memory loss. This morning at 2:30 AM, patient received phone call informing her that her mother . Patient had been aware her mother was in a hospital. says for approximately an hour afterwards, patient was responding as expected (grieving, crying), but that around 3:30 AM he started to become aware that she was forgetting things such as name of one of her grandchildren, why there were new floors in the house ( says they were installed weeks ago), and most notably, repeatedly forgetting completely that she had been told that her mother (this would appear to be completely new information to her each time). patients baseline is AAOX3 and has never had any memory issues at all. Patient arrives awake, alert, oriented and NAD but asking me what happened. When I ask why shes here, she says Im not sure why Im here but without subsequent prompting, she says I know my mothers in the hospital, though. Review of Systems Constitutional: reports: Reviewed and negative Eyes: reports: Reviewed and negative Ears: reports: Reviewed and negative Cardiac: reports: Reviewed and negative Respiratory: reports: Reviewed and negative GI: reports: Reviewed and negative : denies: Dysuria, Frequency Musculoskeletal: reports: Reviewed and negative Neurologic: reports: Confused, Altered mental status. denies: Generalized weakness, Focal weakness, Numbness, Difficulty speaking, Near syncope, Headache PD PAST MEDICAL HISTORY - Past Medical History Cardiovascular: Hypertension, High cholesterol Respiratory: None Endocrine/Autoimmune: Type 2 diabetes GI: None : None HEENT: None Psych: None Musculoskeletal: Osteoporosis Derm: None - Past Surgical History Past Surgical History: Yes General: Cholecystectomy, Gastric surgery, Colonoscopy /CARP[facility] REPAIR: Breast implants Derm: Other - Present Medications Home Medications: Ambulatory Orders Medication Instructions Recorded Confirmed Aspirin Chewable [St Joey 81 mg PO DAILY 11/14/16 05/01/20 Aspirin] Metformin HCl 500 mg PO BID 11/14/16 05/01/20 Simvastatin 20 mg PO DAILY 11/14/16 05/01/20 lisinopriL [Lisinopril] 10 mg PO DAILY 11/14/16 05/01/20 - Allergies Allergies/Adverse Reactions: Allergies Allergy/AdvReac Type Severity Reaction Status Date / Time Sulfa (Sulfonamide Allergy Unknown Verified 05/01/20 06:39 Antibiotics) - Social History Does the pt smoke?: No Smoking Status: Never smoker Does the pt drink ETOH?: No Does the pt have substance abuse?: No - Immunizations Immunizations are current?: Yes - POLST Patient has POLST: No PD ED PE NORMAL - Vitals Vital signs reviewed: Yes - General General: No acute distress, Well developed/nourished, Other (AAOx2, does not know month) - HEENT HEENT: PERRL, EOMI, Moist mucous membranes - Neck Neck: Supple, no meningeal sign - Cardiac Cardiac: RRR, No murmur, No gallop, No rub - Respiratory Respiratory: No respiratory distress, Clear bilaterally - Abdomen Abdomen: Soft, Non tender - Derm Derm: Normal color, Warm and dry - Extremities Extremities: Normal ROM s pain, No edema - Neuro Neuro: wrapper opener 2-12 intact, No motor deficit, No sensory deficit, Normal speech Eye Opening: Spontaneous Motor: Obeys Commands Verbal: Oriented GCS Score: 15 - Psych Psych: Normal mood (mild apprehension appropriate to situation, briefly tearful when reminded about her mothers ), Normal affect PD ED PE EXPANDED - GCS Eye Opening: Spontaneous Motor: Obeys Commands Verbal: Confused Total: 14 NIHSS - Level of Consciousness Level of consciousness: (0) Alert, Keenly responsive LOC Questions: (2) Answers neither correct LOC Commands: (0) Performs both correctly - Gaze Best Gaze: (0) Normal - Visual Visual: (0) No loss - Facial Palsy Facial Palsy: (0) Normal, symmetrical movement - Motor Arms (both separate) Motor Arm (right): (0) No drift Motor Arm (left): (0) No drift - Motor Legs (both separate) Motor Leg (right): (0) No drift Motor Leg (left): (0) No drift - Limb Ataxia Limb Ataxia: (0) Absent - Sensory Sensory: (0) Normal - Best Language Best Language: (0) No aphasia - Dysarthria Dysarthria: (0) Normal - Extinction and Inattention (formally neg Extinction and inattention: (0) No abnormality - Total Score/Results Total Score/Result: 2 Results - Vitals Vitals: Vital Signs - 24 hr 05/01/20 05/01/20 05/01/20 05:33 05:41 05:52 Temperature 36.4 C L 36.4 C L Heart Rate 79 80 70 Respiratory 15 16 13 Rate Blood Pressure 166/65 H 165/66 H 155/60 H O2 Saturation 99 98 100 05/01/20 05/01/20 05/01/20 06:28 06:35 07:00 Temperature 36.5 C Heart Rate 69 71 79 Respiratory 18 13 16 Rate Blood Pressure 143/81 H 155/60 H 157/63 H O2 Saturation 99 99 98 05/01/20 05/01/20 05/01/20 08:12 09:07 09:34 Temperature 36.2 C L Heart Rate 69 70 67 Respiratory 11 L 9 L 16 Rate Blood Pressure 150/64 H 142/66 H 143/65 H O2 Saturation 99 99 99 Oxygen O2 Source Room air - EKG (time done) No standard instances Rate: Rate (enter#) (75) Rhythm: NSR [place]: Normal Intervals: Normal [place] QRS: Normal Ischemia: Normal ST segments - Labs Labs: Laboratory Tests 05/01/20 05/01/20 05/01/20 05:40 05:40 05:40 WBC 7.6 RBC 4.32 Hgb 13.1 Hct 39.1 MCV 90.5 MCH 30.3 MCHC 33.5 RDW 13.2 Plt Count 281 MPV 9.7 Neut # (Auto) 4.7 Lymph # (Auto) 2.2 [place] # (Auto) 0.6 Eos # (Auto) 0.1 Baso # (Auto) 0.0 Absolute Nucleated RBC 0.00 Nucleated RBC % 0.0 PT 11.1 INR 1.0 APTT 26.3 Sodium 139 Potassium 3.3 L Chloride 102 Carbon Dioxide 20 L Anion Gap 17.0 H BUN 24 H Creatinine 0.9 Estimated GFR (MDRD) 62 L Glucose 178 H Calcium 9.8 Total Bilirubin 0.8 AST 23 ALT 24 Alkaline Phosphatase 63 Troponin I High Sens Total Protein 7.9 Albumin 4.4 Globulin 3.5 Albumin/Globulin Ratio 1.3 Lipase 29 TSH Urine Color Urine Clarity Urine pH Ur Specific [place] Urine Protein Urine Glucose (UA) Urine Ketones Urine Occult Blood Urine Nitrite Urine Bilirubin Urine Urobilinogen Ur Leukocyte Esterase Urine RBC Urine WBC Ur Squamous Epith Cells Urine Bacteria Ur Microscopic Review Urine Culture Comments Urine Opiates Screen Ur Oxycodone Screen Urine Methadone Screen Ur Propoxyphene Screen Ur Barbiturates Screen Ur Tricyclics Screen Ur Phencyclidine Scrn Ur Amphetamine Screen U Methamphetamines Scrn U Benzodiazepines Scrn Urine Cocaine Screen U Cannabinoids Screen Ethyl Alcohol < 5.0 05/01/20 05/01/20 05/01/20 05:40 05:40 06:35 WBC RBC Hgb Hct MCV MCH MCHC RDW Plt Count MPV Neut # (Auto) Lymph # (Auto) [place] # (Auto) Eos # (Auto) Baso # (Auto) Absolute Nucleated RBC Nucleated RBC % PT INR APTT Sodium Potassium Chloride Carbon Dioxide Anion Gap BUN Creatinine Estimated GFR (MDRD) Glucose Calcium Total Bilirubin AST ALT Alkaline Phosphatase Troponin I High Sens 4.8 Total Protein Albumin Globulin Albumin/Globulin Ratio Lipase TSH 6.71 H Urine Color Urine Clarity Urine pH Ur Specific [place] Urine Protein Urine Glucose (UA) Urine Ketones Urine Occult Blood Urine Nitrite Urine Bilirubin Urine Urobilinogen Ur Leukocyte Esterase Urine RBC Urine WBC Ur Squamous Epith Cells Urine Bacteria Ur Microscopic Review Urine Culture Comments Urine Opiates Screen NEGATIVE Ur Oxycodone Screen NEGATIVE Urine Methadone Screen NEGATIVE Ur Propoxyphene Screen NEGATIVE Ur Barbiturates Screen NEGATIVE Ur Tricyclics Screen NEGATIVE Ur Phencyclidine Scrn NEGATIVE Ur Amphetamine Screen NEGATIVE U Methamphetamines Scrn NEGATIVE U Benzodiazepines Scrn NEGATIVE Urine Cocaine Screen NEGATIVE U Cannabinoids Screen NEGATIVE Ethyl Alcohol 05/01/20 06:35 WBC RBC Hgb Hct MCV MCH MCHC RDW Plt Count MPV Neut # (Auto) Lymph # (Auto) [place] # (Auto) Eos # (Auto) Baso # (Auto) Absolute Nucleated RBC Nucleated RBC % PT INR APTT Sodium Potassium Chloride Carbon Dioxide Anion Gap BUN Creatinine Estimated GFR (MDRD) Glucose Calcium Total Bilirubin AST ALT Alkaline Phosphatase Troponin I High Sens Total Protein Albumin Globulin Albumin/Globulin Ratio Lipase TSH Urine Color YELLOW Urine Clarity CLEAR Urine pH 7.5 Ur Specific [place] 1.010 Urine Protein NEGATIVE Urine Glucose (UA) NEGATIVE Urine Ketones 15 H Urine Occult Blood NEGATIVE Urine Nitrite NEGATIVE Urine Bilirubin NEGATIVE Urine Urobilinogen 0.2 (NORMAL) Ur Leukocyte Esterase LARGE H Urine RBC None Seen Urine WBC >25 H Ur Squamous Epith Cells MANY Squamous H Urine Bacteria Moderate H Ur Microscopic Review INDICATED Urine Culture Comments NOT INDICATED Urine Opiates Screen Ur Oxycodone Screen Urine Methadone Screen Ur Propoxyphene Screen Ur Barbiturates Screen Ur Tricyclics Screen Ur Phencyclidine Scrn Ur Amphetamine Screen U Methamphetamines Scrn U Benzodiazepines Scrn Urine Cocaine Screen U Cannabinoids Screen Ethyl Alcohol - Rads (name of study) CTH Radiology: Prelim report reviewed, See rad report CTA head Radiology: Prelim report reviewed, See rad report CTA neck Radiology: Prelim report reviewed, See rad report PD MEDICAL DECISION MAKING - ED course Complexity details: reviewed old records, reviewed results, re-evaluated patient, considered differential, d/w patient, d/w family ED course: symptom onset was within 1 hour of receiving news that her mother had and symptoms are limited to short-term memory loss, making a stress reaction (including TGA) highly suspect; CVA occurring so shortly after receiving the upsetting news would be improbable coincidence, though still possible within reason and this code stroke with telestroke consult undertaken in ED. initial information available to me (from BLS when patient arrived) was that last known normal was midnight. subsequently the arrived and provided the information regarding normal mentation up until 2:30 AM, and it wasnt until 3:30 AM that he noticed patient was exhibiting a definite memory loss issue. Her deficit is limited to only some acute memory loss; she was demonstrating ability to form some new memories (she recognizes me on reevaluations, remembers some parts of previous discussions we had, she knew which room to return to after using BR). she was not able to name the month nor her age (she could immediately recall her birthday, but couldnt be more specific than ([age]). she initially couldnt even guess month, eventually (on reevaluation) said November. on telestroke eval, she said April but was obviously uncertain. on reevaluation late in stay, she confidently answers April and says and it was just . on initial presentation, she would forget he mother had and, when reminded, would forget within the following minute or two. she told ED RN and me several times within a few minutes that she has had gastric bypass, each time obviously not having remembered she already told us. as the deficit is limited so, tPA is not recommended by telestroke neurologist and agrees with this. I also strongly agree that thrombolytics would not be indicated for this limited deficit which is improving during ED stay. also considered is more than 3 hours since symptom onset as well as presence of a likely alternative explanation (stress reaction/TGA). patient continued to regain her short-term memory and on late reevaluation in stay, I ask how she is doing and she says Im sad because my mother . she no longer exhibits any memory loss. At this point I d/w patient and disposition plans; specifically consideration of discharge versus transfer to another facility with MRI capability for further inpatient testing (MRI not available at [facility] for another few weeks). I explained that I do not feel it is necessary to transfer for further observation nor inpatient MRI as there is enough information at this point to suggest this event did not represent TIA/CVA. They express understanding of, and agreement with, discharge home. is to call 911 immediately if symptoms recur or new concerning signs/symptoms develop, and to follow up with PMD for consideration of outpatient testing at their discretion. - TPA CVA checklist Inclusion crititeria: positive: CT no bleed, Onset know < 4.5 hr Absolute contraindications: negative: SBP>185 DBP>110 s/p tx, CT shows bleed, CT shows major est CVA, Platelets <100K, PTT > 40, INR >1.7, Known bleeding disorder, Surgery/trauma < 15 days, Seizure at onset, Internal bleed < 22 days, Brain/spine surg < 3 m, Head trauma < 3 m, CVA < 3 months, Any hx ICH, Any hx brain aneurysm, Any hx brain AVM, Any hx brain tumor, Suspect SAH Relative contraindications: positive: Too mild Absolute contraindications if 3-4.5 hr: negative: Coumadin (any INR), Age > 80, Combo prior CVA & DM Departure - Departure Disposition: Home, Self Care Clinical Impression: Stress reaction Condition: Good Instructions: ED Stress React Discharge Date/Time: 05/01/20 09:51
[2020-05-01 05:51] LABS: BASOPHILS % (AUTO) 0.5 %; EOSINOPHILS # (AUTO) 0.1 10^3/uL (0.0-0.7); HCT - HEMATOCRIT 39.1 % (37.0-47.0); HGB - HEMOGLOBIN 13.1 g/dL (12.0-16.0); LYMPHOCYTES # (AUTO) 2.2 10^3/uL (1.5-3.5); LYMPHOCYTES % (AUTO) 28.9 %; MEAN CORPUSCULAR HEMOGLOBIN 30.3 pg (27.0-31.0); MEAN CORPUSCULAR HGB CONC 33.5 g/dL (32.0-36.0); MEAN CORPUSCULAR VOLUME 90.5 fL (81.0-99.0); MEAN PLATELET VOLUME 9.7 fL (7.9-10.8); MONOCYTES # (AUTO) 0.6 10^3/uL (0.0-1.0); MONOCYTES % (AUTO) 7.7 %; NEUTROPHILS # (AUTO) 4.7 10^3/uL (1.5-6.6); NEUTROPHILS % (AUTO) 61.8 %; PLT - PLATELET COUNT 281 10^3/uL (130-450); RED BLOOD COUNT 4.32 10^6/uL (4.20-5.40); RED CELL DISTRIBUTION WIDTH 13.2 % (12.0-15.0); WHITE BLOOD COUNT 7.6 x10^3/uL (4.8-10.8)
[2020-05-01 05:55] LABS: PT - PROTHROMBIN TIME 11.1 secs (9.9-12.6)
[2020-05-01 06:02] LABS: PARTIAL THROMBOPLASTIN TIME 26.3 secs (24.9-33.3)
[2020-05-01 06:06] LABS: ALBUMIN 4.4 g/dL (3.2-5.5); ALBUMIN/GLOBULIN RATIO 1.3 (1.0-2.2); ALKALINE PHOSPHATASE 63 IU/L (42-121); ALT ALANINE AMINOTRANSFERASE 24 IU/L (10-60); AST ASPARTATE AMINOTRANSFERASE 23 IU/L (10-42); BILIRUBIN,TOTAL 0.8 mg/dL (0.2-1.0); BUN - BLOOD UREA NITROGEN 24 mg/dL (6-20); CALCIUM 9.8 mg/dL (8.5-10.3); CARBON DIOXIDE - CO2 20 mmol/L (21-32); CHLORIDE 102 mmol/L (101-111); CREATININE 0.9 mg/dL (0.4-1.0); ETOH - ETHANOL < 5.0 mg/dL; GFR - MDRD 62 (>89); GLUCOSE 178 mg/dL (70-100); LIPASE 29 U/L (22-51); POTASSIUM 3.3 mmol/L (3.5-5.0); SODIUM 139 mmol/L (135-145); TOTAL PROTEIN 7.9 g/dL (6.7-8.2)
[2020-05-01 06:40] LABS: MUDS CUTOFF CONCENTRATIONS CUTOFF CONC BELOW:
[2020-05-01] MEDS ORDERED: IOVERSOL 320 100 ML VIAL IVP ONE ×2 (06:51→06:57)
[2020-05-01 07:02] LABS: AMPHETAMINE SCREEN,URINE NEGATIVE (NEGATIVE); BARBITURATE SCREEN,UR NEGATIVE (NEGATIVE); BENZODIAZEPINES SCREEN, URINE NEGATIVE (NEGATIVE); COCAINE SCREEN URINE NEGATIVE (NEGATIVE); METHADONE SCREEN, URINE NEGATIVE (NEGATIVE); METHAMPHETAMINES SCREEN, URINE NEGATIVE (NEGATIVE); OPIATE SCREEN, URINE NEGATIVE (NEGATIVE); OXYCODONE SCREEN, URINE NEGATIVE (NEGATIVE); PROPOXYPHENE SCREEN, URINE NEGATIVE (NEGATIVE); THC CANNABINOID SCREEN, URINE NEGATIVE (NEGATIVE); TRICYCLIC ANTIDEPRESSANT,URINE NEGATIVE (NEGATIVE)
--- NOTE | 2020-05-01 07:34 | CT Report ---
PROCEDURE: Head W/O Stroke Protocol INDICATIONS: AMS TECHNIQUE: Noncontrast 4.5 mm thick angled axial sections acquired from the foramen magnum to the vertex, with c oronal reformats. For radiation dose reduction, the following was used: automated exposure control, adjustment of mA and/or kV according to patient size. COMPARISON: CTA head and neck 05/01/2020, CT head 12/19/2016 FINDINGS: Image quality: Excellent. The ventricular system and cortical sulci demonstrate atrophy, consistent for patient's stated age. There are areas of hypodensity in the periventricular and subcortical white matter. There is no acut e intra or extra-axial fluid collection. No acute hemorrhage, mass lesion or midline shift. Brainst em is unremarkable. Globes are symmetrical. Sinuses demonstrate minimal mucosal thickening within the maxillary sinuses a s well as dependent sphenoid sinuses. Osseous structures are intact. IMPRESSION: 1. No acute intracranial process. 2. Mild atrophy and chronic microvascular ischemic changes. The above findings are concordant with preliminary report. This study fulfills neurological imaging criteria for inclusion or exclusion of acute stroke therapie s based on available published neurological imaging guidelines. Reviewed by: Es Terrell MD on 05/01/2020 7:32 AM PDT Approved by: Es Terrell MD on 05/01/2020 7:32 AM PDT Station ID: [id number]
--- NOTE | 2020-05-01 07:36 | CT Report ---
PROCEDURE: ANGIO HEAD W/WO INDICATIONS: L sided facial droop CONTRAST: IV CONTRAST: Optiray 320 ml: 80 PO CONTRAST: *NO PO CONTRAST TECHNIQUE: Precontrast 4.5 mm thick angled axial sections acquired from the foramen magnum to the vertex. Afte r the administration of intravenous contrast, 1 mm thick sections acquired through the [place] of [place] is. Postcontrast 4.5 mm thick sections then re-acquired from the foramen magnum to the vertex. 3-di mensional kdyjxtm-vszjgsrrq-nwhcetttci (MIP) and/or volume rendering reformats were acquired of the c entral intracranial vasculature. For radiation dose reduction, the following was used: automated ex posure control, adjustment of mA and/or kV according to patient size. COMPARISON: CT head, CTA neck 05/01/2020 FINDINGS: Image quality: Excellent. Anterior circulation: Intracranial internal carotid arteries are normal in size and flow. The flow within the paired anterior cerebral arteries is normal and symmetric. The flow within the middle cer ebral arteries is normal and symmetric. The anterior communicating artery is seen. No aneurysms are seen. Posterior circulation: Visualized portions of the vertebral arteries demonstrate normal caliber, and join to form a normal appearing basilar artery. Flow within the posterior cerebral arteries is norm al and symmetric. No aneurysms are seen. There is a left vertebral artery dominance. The ventricular system and cortical sulci demonstrate atrophy, consistent for patient's stated age. There are areas of hypodensity in the periventricular and subcortical white matter. There is no acut e intra or extra-axial fluid collection. No acute hemorrhage, mass lesion or midline shift. Brainst em is unremarkable. Globes are symmetrical. Osseous structures are intact. IMPRESSION: 1. No areas of hemodynamically significant stenosis, vascular occlusion or aneurysmal dilation within the anterior or posterior circulation. Reviewed by: Es Terrell MD on 05/01/2020 7:35 AM PDT Approved by: Es Terrell MD on 05/01/2020 7:35 AM PDT Station ID: [id number]
--- NOTE | 2020-05-01 07:39 | CT Report ---
PROCEDURE: ANGIO NECK W INDICATIONS: L sided facial droop, L neck pain CONTRAST: IV CONTRAST: Optiray 320 ml: 80 PO CONTRAST: *NO PO CONTRAST TECHNIQUE: After the administration of intravenous contrast, 1.5 mm axial sections acquired from the aortic arch to the [place] of [place]. Coronal 3-D maximum intensity projection (MIP) and/or volume rendering ref ormats were then performed. For radiation dose reduction, the following was used: automated exposur e control, adjustment of mA and/or kV according to patient size. COMPARISON: None. FINDINGS: Image quality: Excellent. The origins of the left and right common, internal and external carotid arteries demonstrate no areas of hemodynamically significant stenosis, vascular occlusion or aneurysmal dilation. Mild calcificati on is noted at the origin of the internal carotid arteries bilaterally. Origin of the left vertebral artery and right vertebral artery demonstrate no areas of hemodynamically significant stenosis, vascu lar occlusion or aneurysmal dilation. Aortic arch demonstrates conventional anatomy. Limited, visuali zed portions of the subclavian vasculature are unremarkable. IMPRESSION: 1. There are no areas of hemodynamically significant stenosis, vascular occlusion or aneurysmal dilat ion within the neck vasculature. The above findings are concordant with preliminary report. The estimate of stenosis included in the report of the imaging study was calculated using the NASCET method Reviewed by: Es Terrell MD on 05/01/2020 7:38 AM PDT Approved by: Es Terrell MD on 05/01/2020 7:38 AM PDT Station ID: [id number]
[2020-05-01] MEDS ORDERED: ASPIRIN CHEW 81 MG TABLET PO STA (07:53)
[2020-05-01] MEDS ORDERED: SODIUM CHLORIDE 0.9% 1,000 ML IV STA (07:53)
[2020-05-01 08:15] LABS: BILIRUBIN,URINE NEGATIVE (NEGATIVE); GLUCOSE, URINE (UA) NEGATIVE (NEGATIVE); KETONES,URINE (UA) 15 mg/dL (NEGATIVE); LEUKOCYTE ESTERASE, URINE LARGE (NEGATIVE); NITRITE,URINE NEGATIVE (NEGATIVE); OCCULT BLOOD,URINE NEGATIVE (NEGATIVE); PH,URINE 7.5 PH (5.0-7.5); PROTEIN,URINE NEGATIVE (NEGATIVE); UROBILINOGEN,URINE 0.2 (NORMAL) E.U./dL (NORMAL)
[2020-05-01 08:17] LABS: CLARITY,URINE CLEAR (CLEAR)
[2020-05-01 08:24] LABS: WBC,URINE >25 /HPF (0-5)
[2020-05-01 08:25] LABS: BACTERIA,URINE Moderate /HPF (None Seen); RBC,URINE None Seen /HPF (0-5); SQUAMOUS EPITHELIAL CELL,UR MANY Squamous (<= Few)
[2020-05-01 09:34] VITALS: BP 143/65
== END 2020-05-01 09:51 | disposition home or self-care (01) ==
LOC: EDBD → EDUNIT# → ED 05:34
DX: F43.21 Adjustment disorder with depressed mood (principal); F06.8 Other specified mental disorders due to known physiological condition; I10 Essential (primary) hypertension; E11.9 Type 2 diabetes mellitus without complications; Z79.84 Long term (current) use of oral hypoglycemic drugs; Z79.82 Long term (current) use of aspirin
CPT/HCPCS: 36415; 70450; 70496; 70498; 80053; 80306; 81001; 83690; 84443; 84484; 85025; 85610; 85730; 93005; 99283; 99284; A9270; G0480; Q9967; 80320; 81003; 87086

== ENCOUNTER 2020-05-12 12:30 | Outpatient (CLI) | payer MEDICARE, OTHER | END 2020-05-12 12:31 | disposition home or self-care (01) | LOC: COV 12:30 | PROVIDERS: ATTEND Ophthalmology | DX: Z01.812 Encounter for preprocedural laboratory examination (principal); H25.812 Combined forms of age-related cataract, left eye; E11.9 Type 2 diabetes mellitus without complications; Z20.822 Contact with and (suspected) exposure to COVID-19 ==

== ENCOUNTER 2020-05-14 06:52 | Day surgery (SDC) | payer MEDICARE, OTHER ==
[~2020-05-14 06:52] MED LIST: KETOROLAC 0.45% OPHTH DROPS ONE; PHENYLEPHRINE 2.5% OPHTH 2 ML DROPS ONE; PROPARACAINE 0.5% OPHTH DROPS 15 ML ONE
[2020-05-14] MEDS ORDERED: LACTATED RINGERS 500 ML IV ONE (07:16)
--- NOTE | 2020-05-14 07:43 | ANESTHESIA ---
Pre-Anesthesia VS, & Labs - Diagnosis L cataract - Procedure L PhacoIOL Vital Signs: Temp Pulse Resp BP Pulse Ox 36.2 C L 62 16 162/61 H 98 05/14/20 07:04 05/14/20 07:04 05/14/20 07:04 05/14/20 07:04 05/14/20 07:04 Height: 5 ft 4 in Weight (kg): 78.9 kg Body Mass Index: 29.8 BMI Classification: Overweight - NPO >8 hours - Is Patient ?: No - Lab Results Current Lab Results: Laboratory Tests 05/14/20 07:17: POC Whole Bld Glucose 134 H Home Medications and Allergies Aspirin Chewable [St Joey Aspirin] 81 mg PO DAILY 11/14/16 Metformin HCl 500 mg PO BID 11/14/16 Simvastatin 20 mg PO DAILY 11/14/16 lisinopriL [Lisinopril] 10 mg PO DAILY 11/14/16 Allergies/Adverse Reactions: Allergies Allergy/AdvReac Type Severity Reaction Status Date / Time Sulfa (Sulfonamide Allergy Unknown Verified 05/01/20 06:39 Antibiotics) Anes History & Medical History - Anesthetic History Anesthesia Complications: reports: No previous complications Family history of Anesthesia Complications: Denies Family history of Malignant Hyperthermia: Denies - Medical History Cardiovascular: reports: Hypertension, High cholesterol Pulmonary: reports: None Gastrointestinal: reports: None Urinary: reports: None Musculoskeletal: reports: Osteoporosis Endocrine/Autoimmune: reports: Type 2 diabetes Skin: reports: None Smoking Status: Never smoker - Surgical History General: reports: Cholecystectomy, Gastric surgery, Colonoscopy Gynecologic: reports: Breast implants Dermatologic: reports: Other Exam General: Alert, Oriented x3, Cooperative Dental: WNL Mouth Openin Fingerbreadth Neck Mobility: Normal Mallampati classification: I Thyromental Distance: 4-6 cm Plan Anesthesia Type: MAC Consent for Procedure(s) Verified and Reviewed: Yes Code Status: Attempt Resuscitation ASA classification: 2-Mild systemic disease Is this case an emergency?: No
[2020-05-14] MEDS ORDERED: MIDAZOLAM 2 MG/2 ML VIAL ONE (07:58)
[2020-05-14] MEDS ORDERED: LACTATED RINGERS 300 ML IV ONE (08:22)
[2020-05-14 08:37] VITALS: BP 140/47
--- NOTE | 2020-05-14 09:22 | OPERATIVE REPORT ---
DATE OF SERVICE: 05/14/2020 Physician: Emmett Bejarano MD PREOPERATIVE DIAGNOSIS: Visually significant cataract, left eye. This was her first cataract surger y. POSTOPERATIVE DIAGNOSIS: Visually significant cataract, left eye. This was her first cataract surge ry. PROCEDURE: Phacoemulsification with posterior chamber intraocular lens implant, left eye. SURGEON: Emmett Bejarano MD. ANESTHESIA: Monitored anesthesia care. COMPLICATIONS: None. OPERATIVE INDICATIONS: This is a 69-year-old woman with progressive vision loss in the left eye due to 2+ nuclear sclerotic and 1+ posterior subcapsular cataract. Best corrected visual acuity was 20/2 5 with glare to hand motion vision in the left eye. Indications for surgery are overall decrease in vision, difficulty seeing words on a computer screen, difficulty reading, difficulty seeing words, cl osed caption or game scores on TV, difficulty seeing street signs, difficulty driving in low light or at night, difficulty driving at night because of headlights from other vehicles, and difficulty with glare or bright lights in any situation. She was consented at length concerning risks and benefits of cataract surgery, after which she expressed a desire to proceed with surgery. OPERATIVE PROCEDURE: The patient was taken into OR #3 and placed under monitored anesthesia care. A surgical timeout was conducted, confirming correct patient, correct procedure, and correct surgical site. She was given topical anesthesia and prepped and draped in usual sterile fashion. The eye was entered at the 6 and 3 o'clock positions. Intracameral Shugarcaine was injected into the anterior c hamber followed by Viscoat. A continuous-tear curvilinear capsulorrhexis was performed. The nucleus was hydrodissected and phacoemulsified. The cortex was evacuated using automated infusion and aspir ation. Provisc was injected in the capsular bag and a 22.5 diopter intraocular lens inserted into th e bag. Infusion and aspiration were used to evacuate the viscoelastic materials. The eye was inflat ed to physiologic pressure using balanced salt solution and found to be watertight. Approximately 0. 25 mL of a mixture of triamcinolone and moxifloxacin was injected transsclerally into the vitreous in the inferotemporal quadrant. An additional 0.55 mL of a mixture of triamcinolone, moxifloxacin, and vancomycin was injected subconjunctivally in the superior quadrant for infection and inflammation pr ophylaxis. Wound integrity was checked with Weck-Kelly sponges. The patient was taken from the operat ing room in good condition and given postoperative instructions. TD: 05/14/2020 09:20
[2020-05-14] MEDS ORDERED: BRIMONIDINE 0.2% OPHTH DROPS 5 ML ONE ×2 (11:15→11:17)
[2020-05-14] MEDS ORDERED: VANCOMYCIN OPHTHALMI 8MG/0.8ML 8 MG/0.8 ML SYRINGE IO ONE (11:16)
[2020-05-14] MEDS ORDERED: VANCOMYCIN 1 GM VIAL ONE (11:16)
[2020-05-14] MEDS ORDERED: TIMOLOL 0.5% OPHTH DROPS ONE (11:16)
[2020-05-14] MEDS ORDERED: BSS/LIDOCAINE/EPINEPHRINE 1 ML SYRINGE ONE (11:16)
[2020-05-14] MEDS ORDERED: TRIAMCIN/MOXIFLOX OPHTHALMIC 0.6 ML VIAL IO ONE (11:17)
[2020-05-14] MEDS ORDERED: EPINEPHrine 1 MG/ML AMP ONE (11:17)
--- NOTE | 2020-05-14 18:24 | ANESTHESIA POST OP EVALUATION ---
Anesthesia Post Eval - Post Anesthesia Eval Vitals: Last Vital Signs Temp 36.2 C L 05/14/20 08:36 Pulse 63 05/14/20 08:36 Resp 16 05/14/20 08:36 BP 140/47 H 05/14/20 08:36 Pulse Ox 99 05/14/20 08:36 CV Function Including HR & BP: positive: Stable Pain Control: positive: Satisfactory Nausea & Vomiting: positive: Negative Mental Status: positive: Baseline Respiratory Status: Airway Patent Hydration Status: Satisfactory Anesthesia Complications: positive: None
== END 2020-05-14 06:53 | disposition home or self-care (01) ==
LOC: SDS 06:52
PROVIDERS: ATTEND Ophthalmology
DX: E11.36 Type 2 diabetes mellitus with diabetic cataract (principal); H25.812 Combined forms of age-related cataract, left eye; E66.3 Overweight; Z68.29 Body mass index [BMI] 29.0-29.9, adult; I10 Essential (primary) hypertension; E78.00 Pure hypercholesterolemia, unspecified; Z79.82 Long term (current) use of aspirin; Z79.84 Long term (current) use of oral hypoglycemic drugs; Z79.899 Other long term (current) drug therapy; Z86.73 Personal history of transient ischemic attack (TIA), and cerebral infarction without residual deficits; Z87.891 Personal history of nicotine dependence
CPT/HCPCS: 66984; A9270; J3490; J7120

== ENCOUNTER 2020-10-08 06:18 | Day surgery (SDC) | payer MEDICARE, OTHER ==
[~2020-10-08 06:18] MED LIST changes: -PHENYLEPHRINE 2.5% OPHTH 2 ML DROPS ONE; -PROPARACAINE 0.5% OPHTH DROPS 15 ML ONE
[2020-10-08] MEDS ORDERED: PHENYLEPHRINE 2.5% OPHTH 2 ML DROPS ONE (06:19)
[2020-10-08] MEDS ORDERED: PROPARACAINE 0.5% OPHTH DROPS 15 ML ONE (06:20)
[2020-10-08] MEDS: CYCLOPENTOLATE 1% OPHTH DROPS 2 ML ONE ×3 (06:35→06:46)
[2020-10-08] MEDS: PHENYLEPHRINE 2.5% OPHTH 2 ML DROPS ONE ×2 (06:36→06:45)
[2020-10-08] MEDS ORDERED: LACTATED RINGERS 1,000 ML IV ONE ×2 (06:40→07:46)
[2020-10-08] MEDS ORDERED: BSS/LIDOCAINE/EPINEPHRINE 1 ML SYRINGE ONE (07:09)
[2020-10-08] MEDS ORDERED: EPINEPHrine 1 MG/ML AMP ONE (07:09)
[2020-10-08] MEDS ORDERED: TRIAMCIN/MOXIFLOX OPHTHALMIC 0.6 ML VIAL IO ONE ×2 (07:09→07:40)
[2020-10-08] MEDS ORDERED: TIMOLOL 0.5% OPHTH DROPS ONE (07:09)
[2020-10-08] MEDS ORDERED: BRIMONIDINE 0.2% OPHTH DROPS 5 ML ONE (07:09)
[2020-10-08] MEDS ORDERED: VANCOMYCIN OPHTHALMI 8MG/0.8ML 8 MG/0.8 ML SYRINGE IO ONE ×2 (07:10→07:40)
[2020-10-08] MEDS ORDERED: MIDAZOLAM 2 MG/2 ML VIAL ONE (07:12)
[2020-10-08] MEDS ORDERED: fentaNYL 100 MCG/2 ML VIAL ONE (07:12)
--- NOTE | 2020-10-08 07:23 | ANESTHESIA ---
Pre-Anesthesia VS, & Labs - Diagnosis right cataract - Procedure r PhacoIOL Vital Signs: Temp Pulse Resp BP Pulse Ox 36.5 C 65 18 145/50 H 99 10/08/20 06:20 10/08/20 06:20 10/08/20 06:20 10/08/20 06:20 10/08/20 06:20 Height: 5 ft 5 in Weight (kg): 75 kg Body Mass Index: 27.5 BMI Classification: Overweight - NPO >8 hours - Is Patient ?: No - Lab Results Current Lab Results: Laboratory Tests 10/08/20 06:36: POC Whole Bld Glucose 122 H Home Medications and Allergies Home Medications: Ambulatory Orders methocarbamoL [Methocarbamol] 500 mg PO BID PRN 10/07/20 Aspirin Chewable [[place] Aspirin] 81 mg PO DAILY 11/14/16 Metformin HCl 500 mg PO BID 11/14/16 Simvastatin 20 mg PO DAILY 11/14/16 lisinopriL [Lisinopril] 10 mg PO DAILY 11/14/16 methocarbamoL [Methocarbamol] 500 mg PO BID PRN 10/07/20 Allergies/Adverse Reactions: Allergies Allergy/AdvReac Type Severity Reaction Status Date / Time Sulfa (Sulfonamide Allergy Unknown Verified 10/08/20 06:40 Antibiotics) Anes History & Medical History - Anesthetic History Anesthesia Complications: reports: No previous complications Family history of Anesthesia Complications: Denies Family history of Malignant Hyperthermia: Denies - Medical History Cardiovascular: reports: Hypertension, High cholesterol Pulmonary: reports: None Gastrointestinal: reports: None Urinary: reports: None Musculoskeletal: reports: Osteoporosis Endocrine/Autoimmune: reports: Type 2 diabetes Skin: reports: None Smoking Status: Never smoker - Surgical History General: reports: Cholecystectomy, Gastric surgery, Colonoscopy Eyes Ears Nose Throat (EENT): reports: Cataracts Gynecologic: reports: Breast implants Dermatologic: reports: Other Exam General: Alert, Oriented x3, Cooperative Mouth Openin Fingerbreadth Neck Mobility: Normal Mallampati classification: II Respiratory: Lungs clear Cardiovascular: Regular rate Plan Anesthesia Type: MAC Consent for Procedure(s) Verified and Reviewed: Yes Code Status: Attempt Resuscitation ASA classification: 2-Mild systemic disease Is this case an emergency?: No
[2020-10-08] MEDS ORDERED: PROPARACAINE 0.5% OPHTH DROPS 15 ML EACHEYE ONE (07:40)
[2020-10-08] MEDS ORDERED: BSS/LIDOCAINE/EPINEPHRINE 1 ML SYRINGE IO ONE (07:40)
[2020-10-08] MEDS ORDERED: CHONDR SULF/HYALURONATE SYRINGE IO ONE (07:40)
[2020-10-08] MEDS ORDERED: BRIMONIDINE 0.2% OPHTH DROPS 5 ML OPTH ONE (07:40)
[2020-10-08] MEDS ORDERED: TIMOLOL 0.5% OPHTH DROPS OPTH ONE (07:40)
[2020-10-08] MEDS ORDERED: EPINEPHrine 1 MG/ML AMP IR ONE (07:40)
[2020-10-08 08:01] VITALS: BP 128/54
--- NOTE | 2020-10-08 08:59 | OPERATIVE REPORT ---
Operative Report - Other Other Information/Narrative: Date of Surgery: 10/08/20 Preop Dx: Visually significant cataract right eye. Cataract surgery was performed in the left eye on . Postop Dx: Same Procedure: Phacoemulsification with posterior chamber intraocular lens implant right eye Surgeon: Dr. Emmett Bejarano Anesthesia: Monitored anesthesia care Complications: None Operative Indications: This is a 70-year-old F with progressive vision loss in the right eye due to 2+ nuclear sclerotic and 1+ posterior subcapsular cataract. Best corrected visual acuity was 20/25 with glare to hand motion vision in the right eye. Indications for surgery were: - Difficulty seeing words on a computer screen - Difficulty reading - Difficulty driving in low light or at night - Difficulty driving at night because of headlights from other vehicles - Difficulty with glare or bright lights in any situation The patient was consented at length concerning the risks and benefits of cataract surgery after which the patient expressed a desire to proceed with surgery. Operative Procedure: The patient was taken into OR#3 and placed under monitored anesthesia care. A surgical time-out was conducted confirming correct patient, correct procedure, and correct surgical site. The patient was given topical anesthesia and then prepped and draped in the usual sterile fashion. The eye was entered at the 6 and 3 oclock positions. Intracameral Shugarcaine was injected into the anterior chamber followed by a dispersive viscoelastic. A continuous-tear curvilinear capsulorhexis was performed. The nucleus was hydrodissected and phacoemulsified. The cortex was evacuated using automated infusion and aspiration. A cohesive viscoelastic was injected into the capsular bag and a 22.5 diopter intraocular lens was inserted into the bag. Infusion and aspiration were used to evacuate the viscoelastic materials from the eye. The wounds were hydrated and the eye inflated to physiologic pressure using balanced salt solution. Approximately 0.25ml of a mixture of triamcinolone and moxifloxacin was injected trans-sclerally into the vitreous in the inferotemporal quadrant using a 30 gauge cannula. An additional 0.55ml of a mixture of triamcinolone, moxifloxacin, and vancomycin was injected subconjunctivally in the superior quadrant for infection and inflammation prophylaxis. Wound integrity was checked with Weck-Kelly sponges. The patient was taken from the operating room in good condition and given post-op instructions.
--- NOTE | 2020-10-08 14:17 | ANESTHESIA POST OP EVALUATION ---
Anesthesia Post Eval - Post Anesthesia Eval Vitals: Last Vital Signs Temp 36.2 C L 10/08/20 08:00 Pulse 63 10/08/20 08:00 Resp 14 10/08/20 08:00 BP 128/54 L 10/08/20 08:00 Pulse Ox 96 10/08/20 08:00 CV Function Including HR & BP: Stable Pain Control: Satisfactory Nausea & Vomiting: Negative Mental Status: Baseline Respiratory Status: Airway Patent Hydration Status: Satisfactory Anesthesia Complications: None
== END 2020-10-08 06:19 | disposition home or self-care (01) ==
LOC: SDS 06:18
PROVIDERS: ATTEND Ophthalmology
DX: E11.36 Type 2 diabetes mellitus with diabetic cataract (principal); H25.811 Combined forms of age-related cataract, right eye; Z79.84 Long term (current) use of oral hypoglycemic drugs; Z98.42 Cataract extraction status, left eye
CPT/HCPCS: 66984; A9270; J3490; J7120